=== PATIENT | female | born 1990 | race African-American/Black ===

== ENCOUNTER 2017-02-13 11:13 | Emergency (ER) | payer MEDICAID, OTHER ==
[~2017-02-13] VITALS: Ht 160 cm; Wt 70.0 kg
[~2017-02-13 11:13] MED LIST: DEPO150I IM
[2017-02-13 11:14] VITALS: BP 120/90; PULSE 91; RESP 16; TEMP 98.4; O2SAT 98
--- NOTE | 2017-02-13 11:34 | PD ---
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 The patient states that 2 months ago she received her first Depo-Provera injection for contraception. States that she believes this is what is causing her to have bleeding. States she has never been on this medication or any other hormone previously. States that she did have a Pap smear done the month before starting this injection which was unremarkable. States that today she woke up feeling fatigued and having muscle aches in her neck and back. States that this concerned her and she wanted to come in for evaluation. She denies any fever, chills, nausea, vomiting, abdominal pain, diarrhea, constipation, chest pain, shortness of breath, cough or cold symptoms. States that she does have some intermittent lightheadedness. Denies any history of anemia. No other complaints. PFSH Past Medical History Medical History: Denies Significant Hx Diminished Hearing: No Immunizations Current: No Tetanus Vaccination: < 5 Years Influenza Vaccination: No ?: Not : 4 Para: 2 Miscarriage: 1 : 0 Ectopic : Yes (x1) Past Surgical History Gynecologic Surgery: Yes (TUBAL WITH RUPTURE, REMOVAL OF L. TUBE) Other Surgery: Yes (REMOVAL OF LEFT FALLOPIAN TUBE) Social History Alcohol Use: No Tobacco Use: No Substance Use: No Allergies-Medications (Allergen,Severity, Reaction): Coded Allergies: Amoxicillin (Verified Allergy, Unknown, 12/04/16) Pt reports allergy during childhood, unknown severity or reaction Reported Meds & Prescriptions Reported Meds & Active Scripts Active Depo-Provera Inj (Medroxyprogesterone Inj) 150 Mg/Ml Inj 150 Mg IM Q90D Review of Systems Except as stated in HPI: all other systems reviewed are Neg Physical Exam Narrative GENERAL: Well-nourished and well-developed pleasant patient in no acute distress who is nontoxic appearing. SKIN: Warm and dry. HEAD: Normocephalic and atraumatic. EYES: No injection, drainage, or hyphema noted. PERRLA. EOMI. ENT: No nasal drainage noted. Oropharynx is clear. NECK: Supple and the trachea is midline. No nuchal rigidity. CARDIOVASCULAR: Regular rate and rhythm. RESPIRATORY: Breath sounds are equal bilaterally with no accessory muscle use, wheezing, rhonchi, or crackles. GASTROINTESTINAL: Abdomen is soft, non-tender, and nondistended. MUSCULOSKELETAL: No obvious deformities, swelling, cyanosis, or ecchymosis is present throughout the upper and lower extremities. Patient has full range of motion without any signs of neurovascular compromise. BACK: Nontender without any obvious deformities, bony point tenderness, or crepitus noted throughout the thoracic and lumbar vertebrae. NEUROLOGICAL: Awake, alert, and oriented. Normal speech and gait. Cranial nerves are grossly intact. Data Data Last Documented VS Vital Signs Date Time Temp Pulse Resp B/P Pulse Ox O2 Delivery O2 Flow Rate FiO2 02/13/17 11:14 98.4 91 16 120/90 98 Orders Complete Blood Count With Diff (02/13/17 11:31) Ed Urine Pregnancytest Poc (02/13/17 11:31) Basic Metabolic Panel (Bmp) (02/13/17 11:34) Labs Laboratory Tests Test 02/13/17 11:37 White Blood Count 6.2 TH/MM3 Red Blood Count 4.24 MIL/MM3 Hemoglobin 12.7 GM/DL Hematocrit 38.3 % Mean Corpuscular Volume 90.3 FL Mean Corpuscular Hemoglobin 30.0 PG Mean Corpuscular Hemoglobin 33.2 % Concent Red Cell Distribution Width 14.6 % Platelet Count 242 TH/MM3 Mean Platelet Volume 7.5 FL Neutrophils (%) (Auto) 51.2 % Lymphocytes (%) (Auto) 39.4 % Monocytes (%) (Auto) 8.0 % Eosinophils (%) (Auto) 0.9 % Basophils (%) (Auto) 0.5 % Neutrophils # (Auto) 3.2 TH/MM3 Lymphocytes # (Auto) 2.5 TH/MM3 Monocytes # (Auto) 0.5 TH/MM3 Eosinophils # (Auto) 0.1 TH/MM3 Basophils # (Auto) 0.0 TH/MM3 CBC Comment DIFF FINAL Differential Comment Sodium Level 138 MEQ/L Potassium Level 4.0 MEQ/L Chloride Level 106 MEQ/L Carbon Dioxide Level 25.6 MEQ/L Anion Gap 6 MEQ/L Blood Urea Nitrogen 10 MG/DL Creatinine 0.87 MG/DL Estimat Glomerular Filtration 95 ML/MIN Rate Random Glucose 80 MG/DL Calcium Level 9.1 MG/DL MDM Medical Decision Making Medical Screen Exam Complete: Yes Emergency Medical Condition: Yes Differential Diagnosis Medication side effect versus dysfunctional uterine bleeding versus dysmenorrhea versus symptomatic anemia Narrative Course 27-year-old female presents to the emergency department for evaluation of one month history of vaginal bleeding after receiving her first dose of Depo- Provera. Patient is afebrile, vital signs are stable. Physical examination is essentially unremarkable. CBC is unremarkable. BMP is unremarkable. Patient has remained stable and without complaint while here in the emergency department. Labs are all reassuring. I discussed with the patient that abnormal vaginal bleeding is a side effect of the Depo-Provera injection. She is to follow-up with her director media who is giving her this medication. Patient verbalizes understanding and agreement with treatment plan. I discussed the case with my attending physician Dr. Coello who is aware of the patients history, physical examination findings, and treatment plan. 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 Return to the ED for any acute worsening of symptoms. Med/Other Pt SpecificInfo: No Change to Meds Disposition: 01 DISCHARGE HOME Condition: Stable Faviola Woody February 13, 2017 11:34
[2017-02-13 12:09] LABS: AUTOMATED NEUTROPHIL # 3.2 TH/MM3 (1.8-7.7); BASOPHIL % 0.5 % (0.0-2.0); EOSINOPHIL # 0.1 TH/MM3 (0-0.4); EOSINOPHIL % 0.9 % (0.0-4.0); HEMATOCRIT 38.3 % (35.0-46.0); HEMO FLAGS DIFF FINAL; LYMPH % 39.4 % (9.0-44.0); LYMPHOCYTE # 2.5 TH/MM3 (1.0-4.8); MEAN CELL VOLUME 90.3 FL (80.0-100.0); MEAN CORPUSCULAR HGB CONC 33.2 % (32.0-36.0); NEUT % 51.2 % (16.0-70.0); PLATELET COUNT 242 TH/MM3 (150-450); RED BLOOD COUNT 4.24 MIL/MM3 (4.00-5.30); RED CELL DISTRIBUTION WIDTH 14.6 % (11.6-17.2); WHITE BLOOD COUNT 6.2 TH/MM3 (4.0-11.0)
[2017-02-13 12:35] LABS: BICARBONATE 25.6 MEQ/L (21.0-32.0)
== END 2017-02-13 12:50 | disposition home or self-care (01) ==
LOC: NEPD 11:13
DX: N93.9 Abnormal uterine and vaginal bleeding, unspecified (principal); T88.7XXA Unspecified adverse effect of drug or medicament, initial encounter; R53.83 Other fatigue; M79.1 Myalgia; R42 Dizziness and giddiness
CPT/HCPCS: 80048; 84703; 85025; 99283

== ENCOUNTER 2017-04-05 16:02 | Emergency (ER) | payer MEDICAID, OTHER ==
[2017-04-05 16:04] VITALS: BP 125/72; PULSE 77; RESP 18; TEMP 98.7; O2SAT 100
[2017-04-05 16:10] VITALS: BP 127/69; PULSE 79; RESP 18; TEMP 98.6; O2SAT 100
--- NOTE | 2017-04-05 16:52 | PD ---
Physical Exam Time Seen by Provider: 16:51 Narrative 27 y/o female with 2 weeks nausea, breast soreness. Vital signs reviewed. Seen at triage desk. Awaiting bed placement. Data Data Last Documented VS Vital Signs Date Time Temp Pulse Resp B/P Pulse Ox O2 Delivery O2 Flow Rate FiO2 04/05/17 16:10 98.6 79 18 127/69 100 Room Air Orders Ed Urine Pregnancytest Poc (04/05/17 16:54) MDM Medical Record Reviewed: Yes Supervised Visit with KRISSY: No Fabien Floyd Apr 05, 2017 16:52
[2017-04-05] MEDS ORDERED: SODIUM CHLOR 0.9% 1000 ML INJ 1,000 ML IV SCH (20:07)
--- NOTE | 2017-04-05 20:09 | PD ---
HPI Chief Complaint: GI Complaint Time Seen by Provider: 20:08 Travel History International Travel<30 days: No Contact w/Intl Traveler<30days: No Traveled to known affect area: No History of Present Illness HPI 27-year-old female presents to the emergency department for evaluation of nausea for 3 weeks. States that she's also had some breast tenderness. States that she has not had a menstrual cycle for 1.5 months. States that she had a Depo-Provera injection at the end of December and then had 1 month of vaginal bleeding. Has not had a menses since then. States that she did not get a second Depakote injection as she does not want to have this medication, she is not currently on any sort of contraception. She denies any abdominal pain, vomiting, diarrhea, constipation, fever, chills, chest pain, shortness of breath. States she does have some burning with urination. Denies any urinary frequency, hematuria, vaginal discharge. Unsure of status. PFSH Past Medical History Medical History: Denies Significant Hx Diminished Hearing: No Immunizations Current: No ?: Unknown : 4 Para: 2 Miscarriage: 1 : 0 Ectopic : Yes (x1) Past Surgical History Gynecologic Surgery: Yes (TUBAL WITH RUPTURE, REMOVAL OF L. TUBE) Other Surgery: Yes (REMOVAL OF LEFT FALLOPIAN TUBE) Social History Alcohol Use: No Tobacco Use: No Substance Use: Yes (2 days ago-) Allergies-Medications (Allergen,Severity, Reaction): Coded Allergies: Amoxicillin (Verified Allergy, Unknown, 12/04/16) Pt reports allergy during childhood, unknown severity or reaction Reported Meds & Prescriptions Reported Meds & Active Scripts Active Keflex (Cephalexin) 500 Mg Cap 500 Mg PO Q12H 7 Days Depo-Provera Inj (Medroxyprogesterone Inj) 150 Mg/Ml Inj 150 Mg IM Q90D Review of Systems Except as stated in HPI: all other systems reviewed are Neg Physical Exam Narrative GENERAL: Well-nourished and well-developed pleasant patient in no acute distress who is nontoxic appearing. SKIN: Warm and dry. HEAD: Normocephalic and atraumatic. EYES: No injection, drainage, or hyphema noted. PERRLA. EOMI. ENT: No nasal drainage noted. Oropharynx is clear. NECK: Supple and the trachea is midline. CARDIOVASCULAR: Regular rate and rhythm. RESPIRATORY: Breath sounds are equal bilaterally with no accessory muscle use, wheezing, rhonchi, or crackles. GASTROINTESTINAL: Abdomen is soft, non-tender, and nondistended. No rebound tenderness or guarding. MUSCULOSKELETAL: No obvious deformities, swelling, cyanosis, or ecchymosis is present throughout the upper and lower extremities. Patient has full range of motion without any signs of neurovascular compromise. NEUROLOGICAL: Awake, alert, and oriented. Normal speech and gait. Cranial nerves are grossly intact. Data Data Last Documented VS Vital Signs Date Time Temp Pulse Resp B/P Pulse Ox O2 Delivery O2 Flow Rate FiO2 04/05/17 16:10 98.6 79 18 127/69 100 Room Air Orders Ed Urine Pregnancytest Poc (04/05/17 16:54) Complete Blood Count With Diff (04/05/17 20:07) Comprehensive Metabolic Panel (04/05/17 20:07) Lipase (04/05/17 20:07) Urinalysis - C+S If Indicated (04/05/17 20:07) Iv Access Insert/Monitor (04/05/17 20:07) Ondansetron Inj (Zofran Inj) (04/05/17 20:15) Sodium Chlor 0.9% 1000 Ml Inj (Ns 1000 M (04/05/17 20:07) Sodium Chloride 0.9% Flush (Ns Flush) (04/05/17 20:15) Urine Culture (04/05/17 20:48) Labs Laboratory Tests Test 04/05/17 20:15 White Blood Count 8.2 TH/MM3 Red Blood Count 4.44 MIL/MM3 Hemoglobin 13.6 GM/DL Hematocrit 39.9 % Mean Corpuscular Volume 89.8 FL Mean Corpuscular Hemoglobin 30.6 PG Mean Corpuscular Hemoglobin 34.0 % Concent Red Cell Distribution Width 13.8 % Platelet Count 246 TH/MM3 Mean Platelet Volume 8.2 FL Neutrophils (%) (Auto) 49.5 % Lymphocytes (%) (Auto) 40.9 % Monocytes (%) (Auto) 8.4 % Eosinophils (%) (Auto) 0.7 % Basophils (%) (Auto) 0.5 % Neutrophils # (Auto) 4.1 TH/MM3 Lymphocytes # (Auto) 3.4 TH/MM3 Monocytes # (Auto) 0.7 TH/MM3 Eosinophils # (Auto) 0.1 TH/MM3 Basophils # (Auto) 0.0 TH/MM3 CBC Comment DIFF FINAL Differential Comment Urine Color YELLOW Urine Turbidity CLEAR Urine pH 7.0 Urine Specific [place] 1.023 Urine Protein NEG mg/dL Urine Glucose (UA) NEG mg/dL Urine Ketones NEG mg/dL Urine Occult Blood NEG Urine Nitrite NEG Urine Bilirubin NEG Urine Urobilinogen 2.0 MG/DL Urine Leukocyte Esterase MOD Urine RBC 1 /hpf Urine WBC 2 /hpf Urine Squamous Epithelial 2 /hpf Cells Urine Bacteria RARE /hpf Urine Mucus FEW /lpf Microscopic Urinalysis Comment CULT NOT INDICATED Sodium Level 138 MEQ/L Potassium Level 3.7 MEQ/L Chloride Level 107 MEQ/L Carbon Dioxide Level 24.7 MEQ/L Anion Gap 6 MEQ/L Blood Urea Nitrogen 9 MG/DL Creatinine 0.68 MG/DL Estimat Glomerular Filtration 126 ML/MIN Rate Random Glucose 80 MG/DL Calcium Level 9.5 MG/DL Total Bilirubin 0.3 MG/DL Aspartate Amino Transf 30 U/L (AST/SGOT) Alanine Aminotransferase 19 U/L (ALT/SGPT) Alkaline Phosphatase 59 U/L Total Protein 8.4 GM/DL Albumin 4.0 GM/DL Lipase 94 U/L [facility] Medical Decision Making Medical Screen Exam Complete: Yes Emergency Medical Condition: Yes Differential Diagnosis versus medication reaction versus urinary tract infection versus pancreatitis Narrative Course 27-year-old female presents to the emergency department for evaluation of nausea for 3 weeks. Patient is afebrile, vital signs are stable. Physical examination is unremarkable. Abdominal examination is benign. ED urine test is negative. The patient thinks that her symptoms are secondary to the depo Provera injection she received 3 months ago. IV access is obtained , labs have been drawn and sent. Patient is administered IV fluids and Zofran. CBC is unremarkable. Urinalysis shows moderate leukocyte esterase, rare bacteria and few mucus. Because she is symptomatic with burning with urination we'll treat the patient for urinary tract infection with Keflex. CMP is unremarkable. Patient will be discharged home with Keflex. Advised follow-up as an outpatient with her PCP or her final inspector shuttle. Patient also complaining of right knee swelling, has a history of right knee problems secondary to an injury over 10 years ago. No new injury or trauma. Has some mild swelling and is asking for prescription out with the inflammation. We'll send her home with naproxen. Patient verbalizes understanding and agreement with treatment plan. Diagnosis Primary Impression: UTI (urinary tract infection) Qualified Code: N39.0 - Urinary tract infection without hematuria, site unspecified Additional Impression: Nausea Referrals: Primary Care Physician Patient Instructions: General Instructions, Urinary Tract Infection in Women ( ED) Additional Instructions: Take medications as prescribed with food and a full glass of water. Follow-up with your Primary Care Physician. Return to the ED for any acute worsening of symptoms. Med/Other Pt SpecificInfo: Prescription(s) given Scripts Naproxen 500 Mg [id number] Mg PO BID 7 Days Ref 0 Prov:Shalom Paige MD 04/05/17 Cephalexin (Keflex)500 Mg [id number] Mg PO Q12H 7 Days Ref 0 Prov:Shalom Paige MD 04/05/17 Disposition: 01 DISCHARGE HOME Condition: Stable Faviola Woody Apr 05, 2017 20:09
[2017-04-05] MEDS ORDERED: SODIUM CHLORIDE 0.9% FLUSH 10 ML FLUSH IV FLUSH PRN (20:15)
[2017-04-05] MEDS ORDERED: ONDANSETRON HCL 4 MG/2 ML VIAL IVP ONE (20:15)
[2017-04-05 20:43] LABS: BACTERIA, URINE RARE /hpf; BLOOD, URINE NEG (NEG); COMMENT (UR) CULT NOT INDICATED; CULTURE IF INDICATED CULT NOT INDICATED; GLUCOSE,URINE NEG (NEG); KETONE, URINE NEG (NEG); MUCUS URINE FEW /lpf (OCC); NITRITE,URINE NEG (NEG); SQUAMOUS EPITHELIAL CELL URINE 2 /hpf (0-5); URINE COLOR YELLOW (YELLW/STRAW)
[2017-04-05 20:44] LABS: AUTOMATED NEUTROPHIL # 4.1 TH/MM3 (1.8-7.7); BASOPHIL % 0.5 % (0.0-2.0); EOSINOPHIL # 0.1 TH/MM3 (0-0.4); EOSINOPHIL % 0.7 % (0.0-4.0); HEMATOCRIT 39.9 % (35.0-46.0); HEMO FLAGS DIFF FINAL; LYMPH % 40.9 % (9.0-44.0); LYMPHOCYTE # 3.4 TH/MM3 (1.0-4.8); MEAN CELL VOLUME 89.8 FL (80.0-100.0); MEAN CORPUSCULAR HEMOGLOBIN 30.6 PG (27.0-34.0); MONO % 8.4 % (0.0-8.0); NEUT % 49.5 % (16.0-70.0); PLATELET COUNT 246 TH/MM3 (150-450); RED BLOOD COUNT 4.44 MIL/MM3 (4.00-5.30); RED CELL DISTRIBUTION WIDTH 13.8 % (11.6-17.2); WHITE BLOOD COUNT 8.2 TH/MM3 (4.0-11.0)
[2017-04-05] MEDS ORDERED: CEPH-460 PO (20:51)
[2017-04-05 20:58] LABS: ALT (GPT) 19 U/L (10-53)
[2017-04-05 21:01] LABS: ALKALINE PHOSPHATASE 59 U/L (45-117); ANION GAP 6 MEQ/L (5-15); AST (GOT) 30 U/L (15-37); BICARBONATE 24.7 MEQ/L (21.0-32.0); BLOOD UREA NITROGEN 9 MG/DL (7-18); CHLORIDE 107 MEQ/L (98-107); GLOMERULAR FILTRATION RATE 126 ML/MIN (>89); SODIUM (NA) 138 MEQ/L (136-145); TOTAL BILIRUBIN ADULT 0.3 MG/DL (0.2-1.0)
[2017-04-05 21:02] LABS: POTASSIUM 3.7 MEQ/L (3.5-5.1)
[2017-04-05] MEDS ORDERED: NAPR500T PO (21:05)
== END 2017-04-05 21:09 | disposition home or self-care (01) ==
LOC: NEPD 16:02
DX: N39.0 Urinary tract infection, site not specified (principal); R11.0 Nausea; Z79.899 Other long term (current) drug therapy; Z88.0 Allergy status to penicillin
CPT/HCPCS: 80053; 81001; 83690; 84703; 85025; 99284

== ENCOUNTER 2017-08-01 11:43 | Emergency (ER) | payer OTHER ==
[~2017-08-01] VITALS: Ht 160 cm; Wt 77.0 kg
[~2017-08-01 11:43] MED LIST changes: +CEPH-460 PO; +NAPR500T2 PO
[2017-08-01 11:44] VITALS: BP 130/69; PULSE 85; RESP 18; TEMP 98.8; O2SAT 100
[2017-08-01] MEDS ORDERED: SODIUM CHLOR 0.9% 1000 ML INJ 1,000 ML IV ONE (12:08)
[2017-08-01] MEDS ORDERED: SODIUM CHLORIDE 0.9% FLUSH 10 ML FLUSH IVF PRN (12:15)
[2017-08-01 12:48] LABS: BASOPHIL % 0.5 % (0.0-2.0); EOSINOPHIL # 0.1 TH/MM3 (0-0.4); EOSINOPHIL % 0.7 % (0.0-4.0); HEMATOCRIT 38.2 % (35.0-46.0); HEMO FLAGS DIFF FINAL; LYMPH % 38.5 % (9.0-44.0); MEAN CELL VOLUME 90.2 FL (80.0-100.0); MEAN CORPUSCULAR HEMOGLOBIN 31.4 PG (27.0-34.0); MEAN CORPUSCULAR HGB CONC 34.9 % (32.0-36.0); MONO % 7.8 % (0.0-8.0); NEUT % 52.5 % (16.0-70.0); PLATELET COUNT 224 TH/MM3 (150-450); RED BLOOD COUNT 4.24 MIL/MM3 (4.00-5.30); RED CELL DISTRIBUTION WIDTH 13.7 % (11.6-17.2); WHITE BLOOD COUNT 7.7 TH/MM3 (4.0-11.0)
[2017-08-01 13:02] LABS: BACTERIA, URINE RARE /hpf; BLOOD, URINE NEG (NEG); COMMENT (UR) CULT NOT INDICATED; CULTURE IF INDICATED CULT NOT INDICATED; GLUCOSE,URINE NEG (NEG); KETONE, URINE NEG (NEG); NITRITE,URINE NEG (NEG); PH, URINE 6.5 (5.0-8.5); URINE COLOR LIGHT-YELLOW (YELLW/STRAW)
[2017-08-01 13:10] LABS: ANION GAP 6 MEQ/L (5-15); AST (GOT) 18 U/L (15-37); BICARBONATE 24.8 MEQ/L (21.0-32.0); BLOOD UREA NITROGEN 6 MG/DL (7-18); CHLORIDE 106 MEQ/L (98-107); GLOMERULAR FILTRATION RATE 118 ML/MIN (>89); POTASSIUM 3.4 MEQ/L (3.5-5.1); SODIUM (NA) 137 MEQ/L (136-145)
[2017-08-01 13:14] LABS: ALKALINE PHOSPHATASE 54 U/L (45-117); ALT (GPT) 18 U/L (10-53); BETA HCG QUANT 682 MIU/ML (0-5); TOTAL BILIRUBIN ADULT 0.3 MG/DL (0.2-1.0)
--- NOTE | 2017-08-01 13:34 | PD ---
HPI Chief Complaint: Abdominal Pain Time Seen by Provider: 12:00 Travel History International Travel<30 days: No Contact w/Intl Traveler<30days: No Traveled to known affect area: No History of Present Illness HPI Patient 27-year-old female who is A2 L2 with history of an ectopic at 6 weeks, resents the emergency room complaints of right mid abdomen to right flank pain. Patient with history of a miscarriage at 2-3 weeks as well as an ectopic at 6 weeks which resulted in resection of left tube due to rupture. Patient reports that for the past 2 days, she's been having intermittent pains, reports that her symptoms feel similar to when she was diagnosed with an ectopic in the past. Patient reports that her first day for last menstrual cycle was July 02, 2017. She did take a test at home which was positive. She did make an appointment with [facility] for [facility] visit. Patient denies any vaginal discharge or bleeding, denies any nausea or vomiting or diarrhea. Patient with no fever or chills, no other complaints at this time. PFSH Past Medical History Diminished Hearing: No Immunizations Current: No Tetanus Vaccination: < 5 Years ?: LMP: 07/02/17 : 4 Para: 2 Miscarriage: 1 : 0 Ectopic : Yes (x1) Past Surgical History Gynecologic Surgery: Yes (TUBAL WITH RUPTURE, REMOVAL OF L. TUBE) Other Surgery: Yes (REMOVAL OF LEFT FALLOPIAN TUBE) Social History Alcohol Use: No Tobacco Use: No Substance Use: No Allergies-Medications (Allergen,Severity, Reaction): Coded Allergies: amoxicillin (Unverified Allergy, Unknown, 08/01/17) Pt reports allergy during childhood, unknown severity or reaction Reported Meds & Prescriptions Reported Meds & Active Scripts Active Review of Systems General / Constitutional: No: Fever Eyes: No: Visual changes HENT: No: Headaches Cardiovascular: No: Chest Pain or Discomfort Respiratory: No: Shortness of Breath Gastrointestinal: Positive: Abdominal Pain, No: Nausea, Vomiting, Diarrhea Genitourinary: Positive: Flank Pain, No: Dysuria, Pelvic Pain, Discharge, Vaginal Bleeding Musculoskeletal: No: Pain Skin: No Rash Neurologic: No: Weakness Psychiatric: No: Depression Endocrine: No: Polydipsia Hematologic/Lymphatic: No: Easy Bruising Physical Exam Narrative GENERAL: mild distress SKIN: Focused skin assessment warm/dry. HEAD: Atraumatic. Normocephalic. EYES: Pupils equal and round. No scleral icterus. No injection or drainage. ENT: No nasal bleeding or discharge. Mucous membranes pink and moist. NECK: Trachea midline. No JVD. CARDIOVASCULAR: Regular rate and rhythm. No murmur appreciated. RESPIRATORY: No accessory muscle use. Clear to auscultation. Breath sounds equal bilaterally. GASTROINTESTINAL: Abdomen soft, mild tenderness to right mid abdomen with no rebound or guarding on exam, nondistended. Hepatic and splenic margins not palpable. MUSCULOSKELETAL: No obvious deformities. No clubbing. No cyanosis. No edema. Patient with no flank pain NEUROLOGICAL: Awake and alert. No obvious cranial nerve deficits. Motor grossly within normal limits. Normal speech. PSYCHIATRIC: Appropriate mood and affect; insight and judgment normal. Data Data Last Documented VS Vital Signs Date Time Temp Pulse Resp B/P (MAP) Pulse Ox O2 Delivery O2 Flow Rate FiO2 08/01/17 14:14 74 20 119/68 (85) 99 08/01/17 11:44 98.8 Room Air Orders Orders Beta Hcg (Quant/Titer) (08/01/17 12:08) Complete Blood Count With Diff (08/01/17 12:08) Comprehensive Metabolic Panel (08/01/17 12:08) Type And Screen (08/01/17 12:08) Urinalysis - C+S If Indicated (08/01/17 12:08) Iv Access Insert/Monitor (08/01/17 12:08) Ecg Monitoring (08/01/17 12:08) Sodium Chloride 0.9% Flush (Ns Flush) (08/01/17 12:15) Sodium Chlor 0.9% 1000 Ml Inj (Ns 1000 M (08/01/17 12:08) Ed Urine Pregnancytest Poc (08/01/17 12:08) NPO (08/01/17 12:08) Us Pelvis (Ques Pr/Ect)W Trans (08/01/17 ) Labs Laboratory Tests Test 08/01/17 12:20 White Blood Count 7.7 TH/MM3 Red Blood Count 4.24 MIL/MM3 Hemoglobin 13.3 GM/DL Hematocrit 38.2 % Mean Corpuscular Volume 90.2 FL Mean Corpuscular Hemoglobin 31.4 PG Mean Corpuscular Hemoglobin Concent 34.9 % Red Cell Distribution Width 13.7 % Platelet Count 224 TH/MM3 Mean Platelet Volume 7.4 FL Neutrophils (%) (Auto) 52.5 % Lymphocytes (%) (Auto) 38.5 % Monocytes (%) (Auto) 7.8 % Eosinophils (%) (Auto) 0.7 % Basophils (%) (Auto) 0.5 % Neutrophils # (Auto) 4.0 TH/MM3 Lymphocytes # (Auto) 3.0 TH/MM3 Monocytes # (Auto) 0.6 TH/MM3 Eosinophils # (Auto) 0.1 TH/MM3 Basophils # (Auto) 0.0 TH/MM3 CBC Comment DIFF FINAL Differential Comment Urine Color LIGHT-YELLOW Urine Turbidity CLEAR Urine pH 6.5 Urine Specific [place] 1.003 Urine Protein NEG mg/dL Urine Glucose (UA) NEG mg/dL Urine Ketones NEG mg/dL Urine Occult Blood NEG Urine Nitrite NEG Urine Bilirubin NEG Urine Urobilinogen LESS THAN 2.0 MG/DL Urine Leukocyte Esterase TRACE Urine RBC 1 /hpf Urine WBC 1 /hpf Urine Bacteria RARE /hpf Microscopic Urinalysis Comment CULT NOT INDICATED Blood Urea Nitrogen 6 MG/DL Creatinine 0.72 MG/DL Random Glucose 75 MG/DL Total Protein 8.4 GM/DL Albumin 4.0 GM/DL Calcium Level 8.9 MG/DL Alkaline Phosphatase 54 U/L Aspartate Amino Transf (AST/SGOT) 18 U/L Alanine Aminotransferase (ALT/SGPT) 18 U/L Total Bilirubin 0.3 MG/DL Sodium Level 137 MEQ/L Potassium Level 3.4 MEQ/L Chloride Level 106 MEQ/L Carbon Dioxide Level 24.8 MEQ/L Anion Gap 6 MEQ/L Estimat Glomerular Filtration Rate 118 ML/MIN Human Chorionic Gonadotropin, Quant 682 MIU/ML MDM Medical Decision Making Medical Screen Exam Complete: Yes Emergency Medical Condition: Yes Medical Record Reviewed: Yes Interpretation(s) Vital Signs Date Time Temp Pulse Resp B/P (MAP) Pulse Ox O2 Delivery O2 Flow Rate FiO2 08/01/17 11:44 98.8 85 18 130/69 (89) 100 Room Air Differential Diagnosis Differential includes ectopic , appendicitis, gastroenteritis, gastritis, kidney stone, UTI, pyelonephritis Narrative Course During the course of the patients emergency department visit, the patients history, examination, and differential diagnosis were reviewed with the patient. The patient was placed on a office executive with oximetry and frequent blood pressure monitoring. The patient had 20-gauge IV access obtained and blood work sent for analysis. Patient's FDLMP was July 02, 2017. Patient is 4 weeks , a estimated due date is April 10, 2018 The patient was initially provided IVF The patients laboratory studies were reviewed and remarkable for: CBC & BMP Diagram 08/01/17 12:20 Total Protein 8.4 H, Albumin 4.0, Calcium Level 8.9, Alkaline Phosphatase 54, Aspartate Amino Transf (AST/SGOT) 18, Alanine Aminotransferase (ALT/SGPT) 18, Total Bilirubin 0.3 cbc: unremarkable BMP: potassium 3.4, LFTs: wnl HCG quant 682 Radiology studies were reviewed and remarkable for Last Impressions Pelvis Ultrasound 08/01/17 0000 Signed Impressions: Service Date/Time: Sunday, August 01, 2017 12:53 - CONCLUSION: 1. No definite intrauterine gestation. The endometrial stripe is heterogeneously prominent. 2. 2.1 x 2.6 x 1.4 cm hypoechoic lesion the left ovary with associated hyperemia enlarged from 1.4 x 1.2 x 1.3 cm on prior exam although similar in appearance. Patient has history of left salpingectomy for ectopic . Suspect a complex cyst although ectopic cannot be entirely excluded. Close followup is recommended. . 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 Discussed with her all labs and all studies including all findings. Discussed that with her early and low hCG Quant, no definite intrauterine gestation can be seen at this time. She does have a prominent hypoechoic lesion in the left ovary - this could be a complex cyst versus ectopic . Patient understands that she needs a repeat hCG Quant as well as a pelvic ultrasound, patient reports that she is pain-free at this time and does not want any other studies including MRI of abdomen to rule out appendicitis. Signs and symptoms of when to return to the ER as well as symptoms of an acute abdomen was reviewed with patient in detail. Diagnosis Primary Impression: Ectopic Additional Impressions: Abdominal pain Ovarian cyst Patient Instructions: General Instructions Additional Instructions: Please provide patient with a copy of their lab work and studies at discharge* * Please follow up with your hatchery supervisor as soon as possible Return to the ER if symptoms worsen or progress Return to the ER as needed You will need a repeat HCG quant in 48 hours as well as repeat pelvic US Ectopic versus ovarian cyst was not ruled out today. Please follow up with your hatchery supervisor as soon as possible.. Return to ER immediately if you have return of pain Pelvic rest until you are seen and cleared by your hatchery supervisor Disposition: 01 DISCHARGE HOME Condition: Ashwini Marques DO Aug 01, 2017 13:34
--- NOTE | 2017-08-01 13:51 | RADRPT ---
EXAM DATE/TIME: 08/01/2017 12:53 [facility] COMPARISON: US PELVIS (QUEST PREG/ECTOPIC) W/TRANSVAG, August 23, 2016, 8:01. INDICATIONS : Right pelvic pain and back pain. LAB(S): Beta-hC MEDICAL HISTORY : . Ectopic. SURGICAL HISTORY : Left salpingectomy. ENCOUNTER: [facility] ACUITY: 2 days PAIN SCORE: 2/10 LOCATION: Bilateral pelvis MEASUREMENTS: UTERUS: 10.0 x 6.5 x 5.7 cm ENDOMETRIAL STRIPE: 20 mm RIGHT OVARY: 2.8 x 1.7 x 1.9 cm LEFT OVARY: 4.5 x 3.4 x 1.9 cm FREE FLUID: Yes Right adnexa. CROWN RUMP LENGTH: not seen = WKS DAYS FHR: not seen BPM FINDINGS: UTERUS: The myometrium has homogeneous echotexture without mass. Endometrial stripe is heterogeneous an d thickened but no gestational sac is demonstrated. RIGHT OVARY: Ovary contains no mass or significant cystic lesion. LEFT OVARY: There is a 2.1 x 2.6 x 1.4 cm hypoechoic lesion in the left ovary with increased vascularity. Th is is similar in appearance to lesion noted on prior exam although there has been interval enlar gement. Left ovary is otherwise unremarkable. MISCELLANEOUS: Trace free fluid in in the right adnexa CONCLUSION: 1. No definite intrauterine gestation. The endometrial stripe is heterogeneously prominent. 2. 2.1 x 2.6 x 1.4 cm hypoechoic lesion the left ovary with associated hyperemia enlarged from 1.4 x 1.2 x 1.3 cm on prior exam although similar in appearance. Patient has history of left salpingectomy for ectopic . Suspect a complex cyst although ectopic cannot be entirely excluded. Close fol lowup is recommended. . Damien Napoles MD on August 01, 2017 at 13:38 Board Certified Radiologist. This report was verified electronically.
[2017-08-01 14:14] VITALS: BP 119/68
== END 2017-08-01 14:30 | disposition home or self-care (01) ==
LOC: NEPD 11:43
DX: O00.109 Unspecified tubal pregnancy without intrauterine pregnancy (principal); Z3A.00 Weeks of gestation of pregnancy not specified
CPT/HCPCS: 76700; 76817; 80053; 81001; 84702; 84703; 85025; 86850; 86900; 86901; 99284; J7030

== ENCOUNTER 2017-08-04 19:21 | Emergency (ER) | payer OTHER ==
[~2017-08-04] VITALS: Ht 160 cm; Wt 80.0 kg
[2017-08-04 19:23] VITALS: BP 119/67; PULSE 79; RESP 16; TEMP 98.6; O2SAT 100
[2017-08-04] MEDS ORDERED: PREN29TA PO (19:41)
--- NOTE | 2017-08-04 19:51 | PD ---
HPI Chief Complaint: Abdominal Pain Time Seen by Provider: 19:35 Travel History International Travel<30 days: No Contact w/Intl Traveler<30days: No Traveled to known affect area: No History of Present Illness HPI 27-year-old woman, 5 para 2, 0, 2, 2 with one previous ectopic resulting in a left salpingectomy and one previous early miscarriage, last menstrual period July 12, presenting for r 48 hour repeat hCG. She presents to the emergency department 48 hours ago for 2 days of intermittent right sided abdominal pain. No vaginal bleeding or vaginal discharge. Was concerned that felt similar to when she had an ectopic in the past. At that time she had an hCG of 682, and an ultrasound that showed no definite intrauterine gestation with hypoechoic lesion in the left ovary with associated hyperemia enlarged from prior exam. She was directed to return to the emergency department for 48 hour repeat hCG. History Past Medical History Medical History: Denies Significant Hx Tetanus Vaccination: < 5 Years Influenza Vaccination: No LMP: 07/02/2017 4 weeks : 4 Para: 2 Social History Alcohol Use: No Tobacco Use: No Allergies-Medications (Allergen,Severity, Reaction): Coded Allergies: amoxicillin (Unverified Allergy, Unknown, 08/01/17) Pt reports allergy during childhood, unknown severity or reaction Reported Meds & Prescriptions Reported Meds & Active Scripts Active Reported Plus Iron 29-1 mg ( Vit-Iron Carbonyl) 29 Mg Iron-1 Mg Tab 1 Tab PO DAILY Review of Systems Except as stated in HPI: all other systems reviewed are Neg Physical Exam Narrative GENERAL: Well-appearing 27 year-old woman, no acute distress. SKIN: Focused skin assessment warm/dry. NECK: Trachea midline. No JVD. CARDIOVASCULAR: Warm and well perfused. RESPIRATORY: Normal rate and effort. GASTROINTESTINAL: Abdomen soft, non-tender, nondistended. Hepatic and splenic margins not palpable. MUSCULOSKELETAL: No obvious deformities. Data Data Last Documented VS Vital Signs Date Time Temp Pulse Resp B/P (MAP) Pulse Ox O2 Delivery O2 Flow Rate FiO2 08/04/17 19:23 98.6 79 16 119/67 (84) 100 Orders Orders Beta Hcg (Quant/Titer) (08/04/17 19:36) Us Pelvis (Ques Pr/Ect)W Trans (08/04/17 ) Labs Laboratory Tests Test 08/04/17 19:45 Human Chorionic Gonadotropin, Quant 3090 MIU/ML [facility] Medical Decision Making Medical Screen Exam Complete: Yes Emergency Medical Condition: Yes Interpretation(s) HCG 3090 Pelvic ultrasound: Now with a cystic structure in the endometrium likely representing a very small gestational sac. No yolk sac or embryo is identified. Suggest clinical and ultrasound follow-up. No other concerning finding. Differential Diagnosis Anterior , threatened AB, intrauterine , miscarriage, ectopic , other Narrative Course Medical decision making 27 year-old woman presents emergency Department with , left-sided adnexal findings on her ultrasound a previous left salpingectomy for ectopic, and a low hCG without definitive intrauterine . We'll repeat check hCG , consider repeat ultrasound. FINAL: HCG rising appropriately. Adnexal findings on the ultrasound, but on the opposite side of her pain. These were seen previously. Recommend outpatient follow-up with OB. Diagnosis Primary Impression: Additional Instructions: Follow-up with your [employer] this week. Return to the emergency department for any worsening pain. Disposition: 01 DISCHARGE HOME Condition: Stable Kwame Tate MD Aug 04, 2017 19:51
[2017-08-04 20:33] LABS: BETA HCG QUANT 3090 MIU/ML (0-5)
--- NOTE | 2017-08-04 21:54 | RADRPT ---
EXAM DATE/TIME: 08/04/2017 21:09 [place] COMPARISON: US PELVIS (QUEST PREG/ECTOPIC) W/TRANSVAG, August 01, 2017, 12:53. INDICATIONS : Pelvic pain. LAB(S): Beta-hC MEDICAL HISTORY : . Ectopic. SURGICAL HISTORY : Left salpingectomy. ENCOUNTER: Subsequent ACUITY: 1 month PAIN SCORE: 2/10 LOCATION: Bilateral pelvis MEASUREMENTS: UTERUS: 9.3 x 5.3 x 5.6 cm ENDOMETRIAL STRIPE: 16 mm RIGHT OVARY: 3.2 x 2.1 x 1.4 cm LEFT OVARY: 4.3 x 2.5 x 1.7 cm FREE FLUID: No FINDINGS: UTERUS: The myometrium has homogeneous echotexture without mass. There is asymmetrically located ovoid cystic structure in the endometrium measuring 7 x 5 x 5 mm. No yolk sac is visualized. It is too small to c alculate dates. RIGHT OVARY: Ovary contains no mass or significant cystic lesion. LEFT OVARY: Ovary contains no mass or significant cystic lesion. MISCELLANEOUS: No free fluid. CONCLUSION: 1. There is now a cystic structure within the endometrium likely representing a very small gestationa l sac. No yolk sac or embryo is identified. Suggest clinical and ultrasound followup, as needed, to c onfirm appropriate progression of . 2. No other concerning finding is seen. Madhav Solorzano MD on August 04, 2017 at 21:49 Board Certified Radiologist. This report was verified electronically.
== END 2017-08-04 22:30 | disposition home or self-care (01) ==
LOC: NEPE 19:21
DX: Z33.1 Pregnant state, incidental (principal)
CPT/HCPCS: 76700; 76817; 84702; 99284

== ENCOUNTER → 2017-08-22 | Outpatient (CLI) | payer MEDICAID, OTHER ==
[~2017-08-22] MED LIST changes: -CEPH-460 PO; -DEPO150I IM; -NAPR500T2 PO; +PREN29TA PO; +PROM12.54 PO
[2017-08-22 16:39] LABS: AUTOMATED NEUTROPHIL # 6.2 TH/MM3 (1.8-7.7); BASOPHIL % 0.3 % (0.0-2.0); EOSINOPHIL # 0.1 TH/MM3 (0-0.4); EOSINOPHIL % 0.7 % (0.0-4.0); HEMATOCRIT 38.5 % (35.0-46.0); HEMO FLAGS DIFF FINAL; LYMPH % 28.3 % (9.0-44.0); LYMPHOCYTE # 2.8 TH/MM3 (1.0-4.8); MEAN CELL VOLUME 91.9 FL (80.0-100.0); MEAN CORPUSCULAR HEMOGLOBIN 30.4 PG (27.0-34.0); MEAN CORPUSCULAR HGB CONC 33.1 % (32.0-36.0); MONO % 8.2 % (0.0-8.0); NEUT % 62.5 % (16.0-70.0); PLATELET COUNT 231 TH/MM3 (150-450); RED BLOOD COUNT 4.19 MIL/MM3 (4.00-5.30); RED CELL DISTRIBUTION WIDTH 14.9 % (11.6-17.2)
[2017-08-23 00:20] LABS: RUBELLA IGG ANTIBODY 9.8 IU/mL (10.0-500.0); RUBELLA STATUS INDETERMINATE (IMMUNE)
[2017-08-25 19:52] LABS: HIV 1/2 AG AB NON-REACTIVE (NONREACTIVE)
== END ==
LOC: CLAB 15:58
PROVIDERS: ATTEND Obstetrics & Gynecology
DX: Z11.59 Encounter for screening for other viral diseases (principal); Z13.29 Encounter for screening for other suspected endocrine disorder; Z13.21 Encounter for screening for nutritional disorder; Z13.228 Encounter for screening for other metabolic disorders; Z20.820 Contact with and (suspected) exposure to varicella
CPT/HCPCS: 36415; 84443; 85025; 86592; 86762; 86787; 86850; 86900; 86901; 87086; 87340

== ENCOUNTER 2017-10-08 16:50 | Emergency (ER) | payer MEDICAID ==
[~2017-10-08] VITALS: Ht 160 cm; Wt 78.6 kg
[~2017-10-08 16:50] MED LIST changes: +AMCIN.1%T TOPICAL
[2017-10-08 16:51] VITALS: BP 121/58; PULSE 91; RESP 16; TEMP 98.8; O2SAT 98
[2017-10-08] MEDS ORDERED: SODIUM CHLOR 0.9% 1000 ML INJ 1,000 ML IV ONE (17:29)
[2017-10-08] MEDS ORDERED: METOCLOPRAMIDE HCL 10 MG/2 ML VIAL IVP ONE (17:30)
[2017-10-08] MEDS ORDERED: ACETAMINOPHEN 500 MG CPLT PO ONE (17:30)
--- NOTE | 2017-10-08 17:34 | PD ---
HPI Chief Complaint: Headache Time Seen by Provider: 17:24 Travel History International Travel<30 days: No Contact w/Intl Traveler<30days: No Traveled to known affect area: No History of Present Illness HPI Examined in the presence of a female nurse. This is a 27-year-old female reports that she is 14 weeks . She presents for evaluation of a headache. Symptoms started yesterday. The pain is a dull frontal headache, aching, rated 4 out of 10. She tried taking Tylenol earlier this morning. Denies blurred vision, nausea or vomiting, lower extremity edema. She has no other complaints at this time. [facility] Past Medical History Medical History: Denies Significant Hx Diminished Hearing: No Immunizations Current: No Influenza Vaccination: No ?: : 4 Para: 2 Miscarriage: 1 : 0 Ectopic : Yes (x1) Past Surgical History Gynecologic Surgery: Yes (TUBAL WITH RUPTURE, REMOVAL OF L TUBE) Other Surgery: Yes (REMOVAL OF LEFT FALLOPIAN TUBE) Social History Alcohol Use: No Tobacco Use: No Substance Use: No Allergies-Medications (Allergen,Severity, Reaction): Coded Allergies: amoxicillin (Unverified Allergy, Unknown, 10/08/17) Pt reports allergy during childhood, unknown severity or reaction Reported Meds & Prescriptions Reported Meds & Active Scripts Active Amcinonide Topical (Amcinonide) 0.1% Cream 1 Applic TOPICAL BID Apply a thin film to affected area(s) Promethazine (Promethazine HCl) 12.5 Mg Tab 12.5 Mg PO Q6H PRN Reported Plus Iron 29-1 mg ( Vit-Iron Carbonyl) 29 Mg Iron-1 Mg Tab 1 Tab PO DAILY Review of Systems Except as stated in HPI: all other systems reviewed are Neg Physical Exam Narrative GENERAL: Well-developed well-nourished female in no acute distress SKIN: Warm and dry. HEAD: Atraumatic. Normocephalic. EYES: Pupils equal and round. No scleral icterus. No injection or drainage. ENT: No nasal bleeding or discharge. Mucous membranes pink and moist. NECK: Trachea midline. No JVD. CARDIOVASCULAR: Regular rate and rhythm. No murmur appreciated. RESPIRATORY: No accessory muscle use. Clear to auscultation. Breath sounds equal bilaterally. GASTROINTESTINAL: Abdomen soft, non-tender, nondistended. Hepatic and splenic margins not palpable. MUSCULOSKELETAL: No obvious deformities. No clubbing. No cyanosis. No edema. NEUROLOGICAL: Awake and alert. No obvious cranial nerve deficits. Motor grossly within normal limits. Normal speech. PSYCHIATRIC: Appropriate mood and affect; insight and judgment normal. Data Data Last Documented VS Vital Signs Date Time Temp Pulse Resp B/P (MAP) Pulse Ox O2 Delivery O2 Flow Rate FiO2 10/08/17 16:51 98.8 91 16 121/58 (79) 98 Orders Orders Oxygen Administration (10/08/17 17:29) Metoclopramide Inj (Reglan Inj) (10/08/17 17:30) Sodium Chlor 0.9% 1000 Ml Inj (Ns 1000 M (10/08/17 17:29) Acetaminophen (Tylenol) (10/08/17 17:30) MDM Medical Decision Making Medical Screen Exam Complete: Yes Emergency Medical Condition: Yes Medical Record Reviewed: Yes Differential Diagnosis Tension headache, preeclampsia, migraine, pseudotumor cerebri, intracranial hemorrhage Narrative Course This is a 27-year-old female with 2 day history of frontal headache. She rates the pain as a 4/10. Physical examination is reassuring with no focal neurologic deficits, no lower extremity edema, normal blood pressure. Unfortunately the patient reports that she has to drive herself home and therefore no sedating medications will be provided. She will be placed on high flow oxygen, given IV normal saline, Reglan, as well as oral Tylenol. 1825: Upon reexamination the patient feels much better, her headache has resolved. She is stable for discharge. 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 Return for any emergent medical conditions. Med/Other Pt SpecificInfo: No Change to Meds Disposition: 01 DISCHARGE HOME Condition: Stable Fabien Floyd Oct 08, 2017 17:34
[2017-10-08 19:02] VITALS: BP 122/60; PULSE 79; RESP 16; O2SAT 100
== END 2017-10-08 19:45 | disposition home or self-care (01) ==
LOC: NEPD 16:50
DX: O26.892 Other specified pregnancy related conditions, second trimester (principal); Z3A.14 14 weeks gestation of pregnancy
CPT/HCPCS: 96361; 96374; 99284; J2765; J7030

== ENCOUNTER 2017-10-29 17:03 | Emergency (ER) | payer MEDICAID ==
[~2017-10-29 17:03] MED LIST changes: -AMCIN.1%T TOPICAL
[2017-10-29 17:05] VITALS: BP 112/65; PULSE 104; RESP 18; TEMP 98.3; O2SAT 100
--- NOTE | 2017-10-29 20:30 | PD ---
HPI Chief Complaint: Cold / Flu Symptoms Time Seen by Provider: 20:29 Travel History International Travel<30 days: No Contact w/Intl Traveler<30days: No Traveled to known affect area: No History of Present Illness HPI 27-year-old female presents to the ED for evaluation of 2 day history of sinus congestion and runny nose. She states that she was coping well with these symptoms. However the last 24 hours she is beginning to have body aches and chills. Kids are sick with similar symptoms and both tested positive for the flu. Patient 17 weeks , denies abdominal pain, vaginal bleeding. She did not receive this years flu vaccine. PFSH Past Medical History Diminished Hearing: No Immunizations Current: No : 4 Para: 2 Miscarriage: 1 : 0 Ectopic : Yes (x1) Past Surgical History Gynecologic Surgery: Yes (TUBAL WITH RUPTURE, REMOVAL OF L TUBE) Other Surgery: Yes (REMOVAL OF LEFT FALLOPIAN TUBE) Social History Alcohol Use: No Tobacco Use: No Substance Use: No Allergies-Medications (Allergen,Severity, Reaction): Coded Allergies: amoxicillin (Unverified Allergy, Unknown, 10/29/17) Pt reports allergy during childhood, unknown severity or reaction Reported Meds & Prescriptions Reported Meds & Active Scripts Active Tamiflu (Oseltamivir Phosphate) 75 Mg Cap 75 Mg PO BID 5 Days Promethazine (Promethazine HCl) 12.5 Mg Tab 12.5 Mg PO Q6H PRN Reported Plus Iron 29-1 mg ( Vit-Iron Carbonyl) 29 Mg Iron-1 Mg Tab 1 Tab PO DAILY Review of Systems Except as stated in HPI: all other systems reviewed are Neg Physical Exam Narrative GENERAL: Well-nourished, well-developed ill-appearing Afro-[place] female in no acute distress. SKIN: Warm and dry. HEAD: Normocephalic. Atraumatic. EYES: No scleral icterus. No injection or drainage. PERRLA. EOMI. ENT: Pearly johnston tympanic membranes bilaterally. Nasal mucosa is moist. Oropharynx without erythema, edema or exudate. NECK: Supple, trachea midline. No JVD or lymphadenopathy. CARDIOVASCULAR: Regular rate and rhythm without murmurs, gallops, or rubs. RESPIRATORY: Breath sounds clear and equal bilaterally. No accessory muscle use. GASTROINTESTINAL: Abdomen soft, non-tender, nondistended. + Bowel sounds MUSCULOSKELETAL: No cyanosis, or edema. BACK: Nontender without obvious deformity. No CVA tenderness. Data Data Last Documented VS Vital Signs Date Time Temp Pulse Resp B/P (MAP) Pulse Ox O2 Delivery O2 Flow Rate FiO2 10/29/17 20:34 10/29/17 17:05 98.3 104 18 100 Orders Orders Influenzae A/B Antigen (10/29/17 17:31) Ed Discharge Order (10/29/17 20:32) MDM Medical Decision Making Medical Screen Exam Complete: Yes Emergency Medical Condition: Yes Differential Diagnosis Viral syndrome versus influenza versus allergic rhinitis versus pharyngitis versus strep pharyngitis versus other Narrative Course 27-year-old female presents to the ED for evaluation of 2 day history of sinus congestion and runny nose. However the last 24 hours she is beginning to have body aches and chills. Kids are sick with similar symptoms and both tested positive for the flu. Patient 17 weeks , denies abdominal pain, vaginal bleeding. She did not receive this years flu vaccine. Patient afebrile on presentation. Physical exam reveals an ill-appearing female in no acute distress. ENT exam is unremarkable. Chest CTA B. Abdomen soft and nontender. Rapid flu swab positive. Patient's prescribed Tamiflu 75 mg twice a day 5 days. She is provided a note for work. She was given strict instructions to return to the ED if her symptoms worsen. I stressed the importance of Tylenol for fevers as well as increased hydration. States that her boyfriend's home to help with her children. She indicated understanding of the instructions and is agreeable to care plan. She is stable and discharged home. Diagnosis Primary Impression: Influenza A Referrals: Primary Care Physician Patient Instructions: General Instructions, Influenza (ED) Departure Forms: Tests/Procedures, Work Release Enter return to work date: Nov 05, 2017 Additional Instructions: Rest, hydrate. Push fluids such as sports drinks, Pedialyte, popsicles, clear broth. Take Tamiflu as prescribed. Continue with symptomatic treatment with OTC medications. Tylenol every 4-6 hours as needed for continued fever and body aches. Increase handwashing frequently to avoid the spread of the virus to other family members and the community. Disinfect commonly touched surfaces such as light switches, microwaves, remote controls. Replace toothbrush at the end of this illness. Follow-up with the primary care provider this week. Return to the ED for any urgent or emergent medical condition. Med/Other Pt SpecificInfo: Prescription(s) given Scripts Oseltamivir (Tamiflu) 75 Mg Cap 75 MG PO BID for Mgmt Viral Infection for 5 Days, #10 CAP 0 Refills Prov: Gene Collins MD 10/29/17 Disposition: 01 DISCHARGE HOME Condition: Stable Mary Ellen Franks Oct 29, 2017 20:30
[2017-10-29] MEDS ORDERED: OSEL75 PO (20:32)
== END 2017-10-29 20:43 | disposition home or self-care (01) ==
LOC: NEPK 17:03
DX: O99.512 Diseases of the respiratory system complicating pregnancy, second trimester (principal); J10.1 Influenza due to other identified influenza virus with other respiratory manifestations; Z3A.17 17 weeks gestation of pregnancy
CPT/HCPCS: 87804; 99283

== ENCOUNTER 2017-11-04 22:07 | Emergency (ER) | payer MEDICAID ==
[~2017-11-04 22:07] MED LIST changes: +OSEL75 PO
--- NOTE | 2017-11-04 23:03 | PD ---
HPI Chief Complaint Decreased movement, influenza Date Seen: Nov 04, 2017 Time Seen: 22:59 Travel History International Travel<30 Days: No Contact w/Intl Traveler<30Days: No Known Affected Area: No History of Present Illness HPI 27-year-old 3 para 2 at 17 weeks gestation who was treated for influenza on the fifth and just completed her Tamiflu. She was concerned because she not felt the baby move today. She denies bleeding, cramping or loss of fluid. Her influenza symptoms are improved but not completely resolved. She continues to have sore throat. No respiratory difficulty. No fever. History Past Medical History Medical History: Denies Significant Hx Obstetric History Obstetric History 2 prior term vaginal deliveries Current under the care of [facility] Family History Family History: Negative Social History Alcohol Use: No Tobacco Use: No Substance Abuse: No Allergies-Medications (Allergen,Severity, Reaction): Coded Allergies: amoxicillin (Unverified Allergy, Unknown, 10/29/17) Pt reports allergy during childhood, unknown severity or reaction Home Meds Active Scripts Oseltamivir (Tamiflu) 75 Mg Cap, 75 MG PO BID for Mgmt Viral Infection for 5 Days, #10 CAP 0 Refills Prov:Gene Collins MD 10/29/17 Promethazine (Promethazine) 12.5 Mg Tab, 12.5 MG PO Q6H Y for NAUSEA OR VOMITING , #30 TAB 0 Refills Prov:Salvatore Leyva MD 08/22/17 Reported Medications Vit-Iron Carbonyl ( Plus Iron 29-1 mg) 29 Mg Iron-1 Mg Tab, 1 TAB PO DAILY for Nutritional Supplement, #30 TAB 0 Refills 08/04/17 Review of Systems Except as stated in HPI: all other systems reviewed are Neg Physical Exam Narrative GENERAL: Well-nourished, well-developed patient. SKIN: Warm and dry. HEAD: Normocephalic and atraumatic. EYES: No scleral icterus. No injection or drainage. ENT: No nasal drainage noted. Mucous membranes pink. Airway patent. NECK: Supple, trachea midline. No JVD. CARDIOVASCULAR: Regular rate and rhythm without murmurs, gallops, or rubs. RESPIRATORY: Breath sounds equal bilaterally. No accessory muscle use. FHT's: Category: [-] Baseline: [140-] Reactive: [-] Variability: [-] Decels: [-] EXTREMITIES: No cyanosis or edema. BACK: Nontender without obvious deformity. No CVA tenderness. NEUROLOGICAL: Awake and alert. Motor and sensory grossly within normal limits. Five out of 5 muscle strength in all muscle groups. Normal speech. MDM Medical Record Reviewed: Yes Narrative Course / MDM Assessment: 17 week multiparous female with resolving influenza, normal surveillance today Plan: Follow up for care on Sunday Diagnosis Diagnosis: Primary Impression: 17 weeks gestation of Additional Impressions: Influenza Decreased movement affecting management of in second trimester Disposition: 01 DISCHARGE HOME Condition: Good Kwame Edward MD Nov 04, 2017 23:03
== END 2017-11-04 23:23 | disposition home or self-care (01) ==
LOC: HOBED 22:07
DX: J11.1 Influenza due to unidentified influenza virus with other respiratory manifestations (principal); O99.512 Diseases of the respiratory system complicating pregnancy, second trimester; O36.8120 Decreased fetal movements, second trimester, not applicable or unspecified; Z3A.17 17 weeks gestation of pregnancy
CPT/HCPCS: 99283

== ENCOUNTER 2018-01-18 09:23 | Emergency (ER) | payer OTHER, MEDICAID ==
--- NOTE | 2018-01-18 10:13 | PD ---
HPI Travel History International Travel<30 Days: No Contact w/Intl Traveler<30Days: No (Mamta Bain MD R1) History of Present Illness HPI 28-year-old female at 28/4 weeks presents to the ED for pelvic and left -sided pain. She has been receiving her care at [facility]. She reports that she has been having left-sided pain, pelvic pain, back pain for the last 2 weeks. She describes it as aching and constant. She also experienced mild irregular contraction yesterday. She has used Tylenol without relief. She does not remember her last normal bowel movement. She reports that her bowel movement this morning resulted in "boy." She also endorses dysuria. She endorses good movement. She denies fevers, chest pain, shortness of breath, leakage of fluid, and vaginal bleeding. (Mamta Bain MD) History Past Medical History Medical History: Denies Significant Hx (Mamta Bain MD) Obstetric History Obstetric History 1 ectopic 1 miscarriage (Mamta Bain MD) Past Surgical History Narrative Surgical Left tubal removal due to ectopic (Mamta Bain MD) Family History Family History: Negative (Mamta Bain MD) Social History Alcohol Use: No Tobacco Use: No Substance Abuse: No (Mamta Bain MD) Allergies-Medications (Allergen,Severity, Reaction): Coded Allergies: amoxicillin (Unverified Allergy, Unknown, 10/29/17) Pt reports allergy during childhood, unknown severity or reaction Home Meds Active Scripts Oseltamivir (Tamiflu) 75 Mg Cap, 75 MG PO BID for Mgmt Viral Infection for 5 Days, #10 CAP 0 Refills Prov:Gene Collins MD 10/29/17 Promethazine (Promethazine) 12.5 Mg Tab, 12.5 MG PO Q6H Y for NAUSEA OR VOMITING , #30 TAB 0 Refills Prov:Salvatore Leyva MD 08/22/17 Reported Medications Vit-Iron Carbonyl ( Plus Iron 29-1 mg) 29 Mg Iron-1 Mg Tab, 1 TAB PO DAILY for Nutritional Supplement, #30 TAB 0 Refills 08/04/17 Review of Systems Except as stated in HPI: all other systems reviewed are Neg (Mamta Bain MD R1) Physical Exam Narrative GENERAL: Well-nourished, well-developed patient. SKIN: Warm and dry. HEAD: Normocephalic and atraumatic. EYES: No scleral icterus. No injection or drainage. ENT: No nasal drainage noted. Mucous membranes pink. Airway patent. NECK: Supple, trachea midline. No JVD. CARDIOVASCULAR: Regular rate and rhythm without murmurs, gallops, or rubs. RESPIRATORY: Breath sounds equal bilaterally. No accessory muscle use. ABDOMEN/GI: Abdomen soft, non-tender, bowel sounds present, no rebound, no guarding Uterine Contractions: - FHT's: Category: 1 Baseline: 130s Reactive: yes Variability: moderate Decels: none EXTREMITIES: No cyanosis or edema. BACK: Nontender without obvious deformity. No CVA tenderness. NEUROLOGICAL: Awake and alert. Motor and sensory grossly within normal limits. Five out of 5 muscle strength in all muscle groups. Normal speech. (Mamta Bain MD R1) Data Data Vital Signs Reviewed: Yes Orders Orders Vital Signs (Adult) .ON ADMISSION (01/18/18 09:55) ^ Labor Status (01/18/18 09:55) Heart (01/18/18 09:55) Urinalysis - C+S If Indicated (01/18/18 09:55) ^ Non Stress Test (01/18/18 09:55) ^ Hydration (01/18/18 09:55) (Mamta Bain MD R1) MDM Plan 28-year-old female at 28/4 weeks presents to the OB ED with abdominal pain. -intrauterine , category 1, reassuring -patient does not recall last normal BM, abdominal pain most likely related to constipation -UA negative -Advised patient to take magnesium citrate OTC -Hydrate regularly -Follow-up with OB provider for routine OB care (Mamta Bain MD R1) Attending Attestation Patient seen and evaluated with resident under direct supervision, agree with assessment and plan. (Kwame Edward MD) Diagnosis Diagnosis: Primary Impression: Constipation Disposition: 01 DISCHARGE HOME Condition: Stable Mamta Bain MD R1 Jan 18, 2018 10:13 Kwame Edward MD Jan 18, 2018 12:52
[2018-01-18 10:34] LABS: BILIRUBIN, URINE NEG (NEG); BLOOD, URINE NEG (NEG); GLUCOSE,URINE NEG (NEG); KETONE, URINE NEG (NEG); NITRITE,URINE NEG (NEG); SQUAMOUS EPITHELIAL CELL URINE 1 /hpf (0-5); URINE COLOR COLORLESS (YELLW/STRAW); URINE LEUKOCYTE ESTERASE NEG (NEG)
== END 2018-01-18 11:00 | disposition home or self-care (01) ==
LOC: HOBED 09:23
DX: O99.613 Diseases of the digestive system complicating pregnancy, third trimester (principal); K59.00 Constipation, unspecified; Z3A.28 28 weeks gestation of pregnancy
CPT/HCPCS: 81001; 99283

== ENCOUNTER 2018-02-27 11:22 | Emergency (ER) | payer OTHER, MEDICAID ==
--- NOTE | 2018-02-27 11:51 | PD ---
HPI Chief Complaint Dizziness, contractions Date Seen: Feb 27, 2018 Travel History International Travel<30 Days: No Contact w/Intl Traveler<30Days: No Known Affected Area: No History of Present Illness HPI Patient is a 28-year-old at 34/2 weeks gestation that presents to the [place] to ED with complaints of dizziness, contractions and feeling dehydrated. Patient states that for the last 2 months she has had irregular contractions that lasts 3-5 minutes or 5-10 minutes. The contractions feels like a tightness in her abdominal area. She also has been feeling pressure in her back and in her vaginal region for the last 2 months as well as shortness of breath. Lightheadedness/dizziness started this morning. She did not have a syncopal episode or fall. Patient denies headache, chest pain, fever, chills, nausea, or vomiting. She has been eating and drinking fluids regularly. She denies dysuria, abnormal vaginal discharge, vaginal bleeding, or loss of fluid. She has been feeling her baby move. History Past Medical History Medical History: Denies Significant Hx Obstetric History Obstetric History Two full-term vaginal deliveries in 2010 and 2013 1 ectopic 1 miscarriage Past Surgical History Narrative Surgical Surgery for ectopic and left fallopian tube removal Family History Narrative Family History Mom has hypertension Multiple family members have diabetes No family history of asthma Social History Narrative Social History Lives at home with 2 sons Works at [employer] Alcohol Use: No Tobacco Use: No Substance Abuse: No Allergies-Medications (Allergen,Severity, Reaction): Coded Allergies: amoxicillin (Unverified Allergy, Unknown, 10/29/17) Pt reports allergy during childhood, unknown severity or reaction Home Meds Active Scripts Hydroxyzine HCl (Hydroxyzine HCl) 25 Mg Tab, 25 MG PO HS, #4 TAB 0 Refills Take 1-2 tabs at bedtime Prov:Shabana Melgar MD R2 02/27/18 Oseltamivir (Tamiflu) 75 Mg Cap, 75 MG PO BID for Mgmt Viral Infection for 5 Days, #10 CAP 0 Refills Prov:Gene Collins MD 10/29/17 Promethazine (Promethazine) 12.5 Mg Tab, 12.5 MG PO Q6H Y for NAUSEA OR VOMITING , #30 TAB 0 Refills Prov:Salvatore Leyva MD 08/22/17 Reported Medications Vit-Iron Carbonyl ( Plus Iron 29-1 mg) 29 Mg Iron-1 Mg Tab, 1 TAB PO DAILY for Nutritional Supplement, #30 TAB 0 Refills 08/04/17 Review of Systems Except as stated in HPI: all other systems reviewed are Neg Physical Exam Narrative GENERAL: Well-nourished, well-developed patient. SKIN: Warm and dry. HEAD: Normocephalic and atraumatic. EYES: No scleral icterus. No injection or drainage. ENT: No nasal drainage noted. Mucous membranes pink. Airway patent. NECK: Supple, trachea midline. No JVD. CARDIOVASCULAR: Regular rate and rhythm without murmurs, gallops, or rubs. RESPIRATORY: Breath sounds equal bilaterally. No accessory muscle use. ABDOMEN/GI: Abdomen soft, non-tender, bowel sounds present, no rebound, no guarding Gravid to 34 weeks size GENITOURINARY: External Genitalia: intact and normal in appearance Cervix: posterior Dilatation: closed Effacement: 0% Station: -3 Presentation: cephalic Membranes: intact Uterine Contractions: Present on monitor, irregular FHT's: Category: I Baseline: 150 Reactive: Multiple accels Variability: Moderate Decels: None EXTREMITIES: No cyanosis or edema. BACK: Nontender without obvious deformity. No CVA tenderness. NEUROLOGICAL: Awake and alert. Motor and sensory grossly within normal limits. Five out of 5 muscle strength in all muscle groups. Normal speech. Data Data Vital Signs Reviewed: Yes Orders Orders Vital Signs (Adult) .ON ADMISSION (02/27/18 11:50) ^ Labor Status (02/27/18 11:50) Urinalysis - C+S If Indicated (02/27/18 11:50) ^ Non Stress Test (02/27/18 11:50) ^ Hydration (02/27/18 11:50) [facility] Medical Record Reviewed: Yes Interpretation(s) 28-year-old presents with dizziness and irregular contractions seen on monitor Plan -Urinalysis is negative -CBC shows H/H 07/23.7 -CMP wnl -Patient received a 1L bolus of D5 LR and Tylenol 650mg -Will discharge home with 4 tablets of Vistaril 25 mg PO HS Diagnosis Diagnosis: Primary Impression: [place] Mullen' contraction Additional Impression: Dizziness Disposition: DISCHARGE HOME Scripts Hydroxyzine HCl (Hydroxyzine HCl) 25 Mg Tab 25 MG PO HS, #4 TAB 0 Refills Take 1-2 tabs at bedtime Prov: Shabana Melgar MD R2 02/27/18 Shabana Melgar MD R2 Feb 27, 2018 11:51
[2018-02-27] MEDS ORDERED: DEXT 5%-NACL 0.45% 1000 ML INJ 1,000 ML IV SCH (11:58)
[2018-02-27] MEDS ORDERED: DEXTROSE 5%-LACTATED RING INJ 1,000 ML IV ONE (12:15)
[2018-02-27 12:17] LABS: BILIRUBIN, URINE NEG (NEG); BLOOD, URINE NEG (NEG); GLUCOSE,URINE NEG (NEG); KETONE, URINE NEG (NEG); NITRITE,URINE NEG (NEG); SQUAMOUS EPITHELIAL CELL URINE 2 /hpf (0-5); URINE COLOR LIGHT-YELLOW (YELLW/STRAW); URINE LEUKOCYTE ESTERASE NEG (NEG)
[2018-02-27 13:07] LABS: HEMATOCRIT 30.7 % (35.0-46.0); MEAN CELL VOLUME 84.9 FL (80.0-100.0); MEAN CORPUSCULAR HEMOGLOBIN 27.7 PG (27.0-34.0); MEAN CORPUSCULAR HGB CONC 32.6 % (32.0-36.0); MEAN PLATELET VOLUME 8.1 FL (7.0-11.0); PLATELET COUNT 152 TH/MM3 (150-450); RED BLOOD COUNT 3.62 MIL/MM3 (4.00-5.30); RED CELL DISTRIBUTION WIDTH 14.9 % (11.6-17.2); WHITE BLOOD COUNT 10.1 TH/MM3 (4.0-11.0)
[2018-02-27 13:25] LABS: ALBUMIN 2.8 GM/DL (3.4-5.0); AST (GOT) 24 U/L (15-37); BICARBONATE 21.7 MEQ/L (21.0-32.0); BLOOD UREA NITROGEN 3 MG/DL (7-18); CALCIUM 9.2 MG/DL (8.5-10.1); CHLORIDE 106 MEQ/L (98-107); CREATININE 0.46 MG/DL (0.50-1.00); GLOMERULAR FILTRATION RATE 196 ML/MIN (>89); GLUCOSE,RANDOM 78 MG/DL (74-106); SODIUM (NA) 138 MEQ/L (136-145)
[2018-02-27 13:26] LABS: ALT (GPT) 21 U/L (10-53)
[2018-02-27 13:28] LABS: ALKALINE PHOSPHATASE 132 U/L (45-117); TOTAL BILIRUBIN ADULT 0.3 MG/DL (0.2-1.0); TOTAL PROTEIN 7.1 GM/DL (6.4-8.2)
[2018-02-27] MEDS ORDERED: HYDR-3133 PO (13:44)
[2018-02-27] MEDS ORDERED: ACETAMINOPHEN 325 MG TAB PO ONE (13:45)
== END 2018-02-27 15:33 | disposition home or self-care (01) ==
LOC: HOBED 11:22
DX: O47.03 False labor before 37 completed weeks of gestation, third trimester (principal); Z3A.34 34 weeks gestation of pregnancy
CPT/HCPCS: 59025; 80053; 81001; 85027; 99284; J7121

== ENCOUNTER 2018-03-15 14:55 | Emergency (ER) | payer OTHER, MEDICAID ==
[2018-03-15] VITALS (17 sets, daily range): PULSE 83–99
[~2018-03-15 14:55] MED LIST changes: +HYDR-3133 PO
--- NOTE | 2018-03-15 15:51 | PD ---
HPI Chief Complaint Contractions Date Seen: Mar 15, 2018 Travel History International Travel<30 Days: No Contact w/Intl Traveler<30Days: No Known Affected Area: No History of Present Illness HPI Patient is a 28-year-old at 36/4 weeks gestation that presents to the [facility] ED with a chief complaint of contractions that began around 8 AM this morning. Patient states that she lost her mucous plug 2 days ago and also noticed some this morning. She woke up this morning with sharp right sided pain and states that she has been having contractions that, every 3-5 minutes. The contractions 4/10 in intensity. She has also been feeling pressure on her bladder. Patient denies headache, chest pain, fever, chills, nausea, or vomiting. She also denies dysuria, abnormal vaginal discharge, vaginal bleeding, or loss of fluid. She has been feeling her baby move but not so much this morning. Weeks Gestation: 36 Para: 2 : 5 Miscarriage: 1 History Past Medical History Medical History: Denies Significant Hx Obstetric History Obstetric History Two full-term vaginal deliveries in 2010 and 2013 1 ectopic 1 miscarriage Past Surgical History Narrative Surgical Surgery for ectopic and left fallopian tube removal Family History Narrative Family History Mom has hypertension Multiple family members have diabetes No family history of asthma Social History Narrative Social History Lives at home with 2 sons Works at [employer] Her boyfriend comes around to help with the kids Alcohol Use: No Tobacco Use: No Substance Abuse: No Allergies-Medications (Allergen,Severity, Reaction): Coded Allergies: amoxicillin (Unverified Allergy, Unknown, 10/29/17) Pt reports allergy during childhood, unknown severity or reaction Home Meds Active Scripts Hydroxyzine HCl (Hydroxyzine HCl) 25 Mg Tab, 25 MG PO HS, #4 TAB 0 Refills Take 1-2 tabs at bedtime Prov:Shabana Melgar MD R2 02/27/18 Oseltamivir (Tamiflu) 75 Mg Cap, 75 MG PO BID for Mgmt Viral Infection for 5 Days, #10 CAP 0 Refills Prov:Gene Collins MD 10/29/17 Promethazine (Promethazine) 12.5 Mg Tab, 12.5 MG PO Q6H Y for NAUSEA OR VOMITING , #30 TAB 0 Refills Prov:Salvatore Leyva MD 08/22/17 Reported Medications Vit-Iron Carbonyl ( Plus Iron 29-1 mg) 29 Mg Iron-1 Mg Tab, 1 TAB PO DAILY for Nutritional Supplement, #30 TAB 0 Refills 08/04/17 Review of Systems Except as stated in HPI: all other systems reviewed are Neg Physical Exam Vital Signs Date Time Temp Pulse Resp B/P (MAP) Pulse Ox O2 Delivery O2 Flow Rate FiO2 03/15/18 15:20 99 03/15/18 15:15 94 Narrative GENERAL: Well-nourished, well-developed patient. SKIN: Warm and dry. HEAD: Normocephalic and atraumatic. EYES: No scleral icterus. No injection or drainage. ENT: No nasal drainage noted. Mucous membranes pink. Airway patent. NECK: Supple, trachea midline. No JVD. CARDIOVASCULAR: Regular rate and rhythm without murmurs, gallops, or rubs. RESPIRATORY: Breath sounds equal bilaterally. No accessory muscle use. ABDOMEN/GI: Abdomen soft, non-tender, bowel sounds present, no rebound, no guarding Gravid to 36 weeks size GENITOURINARY: External Genitalia: intact and normal in appearance Cervix: posterior Dilatation: 1cm Effacement: 20% Station: -3 Presentation: cephalic Membranes: intact Uterine Contractions: Present on monitor every 3-5 minutes FHT's: Category: I Baseline: 145 Reactive: Multiple accels Variability: Moderate Decels: None EXTREMITIES: No cyanosis or edema. NEUROLOGICAL: Awake and alert. Motor and sensory grossly within normal limits. Five out of 5 muscle strength in all muscle groups. Normal speech. Data Data Vital Signs Reviewed: Yes Orders Orders Vital Signs (Adult) .ON ADMISSION (03/15/18 15:33) ^ Labor Status (03/15/18 15:33) ^ Non Stress Test (03/15/18 15:33) ^ Hydration (03/15/18 15:33) MDM Medical Record Reviewed: Yes Interpretation(s) 28-year-old presents with contractions seen on the monitor. Not in active labor. Plan 1. IUP -FHT category I - reassuring -Vaginal exam: 10/13%/-3 -Continue routine care 2. Irregular contractions -Oral and IV hydration (1L LR bolus) After oral and IV hydration, patient felt better and ready to go home. Contractions dissipated in intensity. Labor precautions given. Seen and discussed with Dr. Arshad Diagnosis Diagnosis: Primary Impression: Premature uterine contractions causing threatened premature labor in third trimester Disposition: 01 DISCHARGE HOME Condition: Stable Patient Instructions: Abdominal Pain in (ED), Early Labor Signs (ED) , Labor (ED) Shabana Melgar MD R2 Mar 15, 2018 15:51
[2018-03-15] MEDS ORDERED: LACTATED RINGER'S 1000 ML INJ 1,000 ML IV ONE (16:00)
== END 2018-03-15 17:02 | disposition home or self-care (01) ==
LOC: HOBED 14:55
DX: O47.03 False labor before 37 completed weeks of gestation, third trimester (principal); Z3A.36 36 weeks gestation of pregnancy
CPT/HCPCS: 59025; 99284; J7120

== ENCOUNTER 2018-03-29 14:38 | Inpatient (IN) ==
[2018-03-29] MEDS ORDERED: fentaNYL Citrate Inj 100 MCG/2 ML Ampul IV.PUSH PRN ×2 (15:16)
[2018-03-29] MEDS ORDERED: Oxytocin 30 Units/500ml Premix 30 UNITS/500 ML BAG IV.SIG ONE (15:16)
[2018-03-29] MEDS ORDERED: Sodium Chlor 0.9% Inj 500 ML IV.SIG ONE (15:16)
[2018-03-29] MEDS ORDERED: Naloxone Inj 0.4 MG/ML Vial IV.PUSH PRN (15:16)
[2018-03-29] MEDS ORDERED: Sod Chloride 0.9% Inj 1,000 ML IV.CONT SCH (15:30)
[2018-03-29] MEDS ORDERED: Citric Acid/Sodium Citrate Liq 30 ML UDC PO SCH (15:30)
--- NOTE | 2018-03-29 16:07 | P.HPOB ---
Addendum entered and electronically signed by Reji Patel III, MD, R1 16:44: Original Note: History of Present Illness Primary Care Physician: No Primary Care Physician Chief Complaint: contractions History of Present Illness: Ms Boyle is a 28YO at 38/4 weeks followed by CFW who presents after LOF with a small gush around 2PM today with ctx. Denies VB; however, states there is good movement. Pt was recently seen on 03/25 for pelvic pain and ctx. There has been no N/V/D, dizziness, fall, or other neurologic sxs. Denies dysuria, previous UTIs during . States she has been hydrating. Pt has two sons born at term via , one miscarriage and one ectopic requiring salpingectomy. Weeks Gestation:: 38 Para: 2 : 5 Total # of Miscarriage(s): 1 Total # of Abortions (Spontaneous & Elective): 0 - Inpatient Certification If this patient has been admitted as an Inpatient: I certify that the inpatient services were ordered in accordance with Medicare regulations governing the order. This includes certification that hospital inpatient services are reasonable and necessary and in the case of services not specified as inpatient-only under 42 CFR 419.22(n), that they are appropriately provided as inpatient services in accordance to with the 2-midnight benchmark under 43 CFR 412.3(e) Exam Vital signs: Vital Signs 03/26/18 13:47 03/26/18 13:52 Temperature 98.6 F Pulse Rate 108 H 101 H Respiratory Rate 18 Blood Pressure 135/71 130/64 Narrative: GENERAL: Well-nourished, well-developed patient. SKIN: Warm and dry. No rashes. HEAD: Normocephalic and atraumatic. EYES: No scleral icterus. No injection or drainage. ENT: No nasal drainage noted. Mucous membranes pink. Airway patent. NECK: Supple, trachea midline. No JVD. CARDIOVASCULAR: Regular rate and rhythm without murmurs, gallops, or rubs. RESPIRATORY: Breath sounds equal bilaterally. No accessory muscle use. ABDOMEN/GI: Abdomen soft, non-tender, bowel sounds present, no rebound, no guarding Gravid to 38 weeks size Fundal Height: 38 GENITOURINARY: External Genitalia: intact and normal in appearance Cervix: open Dilatation: 4 Effacement: 80 Station: -3 Presentation: vtx Membranes: SROM at 1400 this afternoon Uterine Contractions: 3-5 minutes FHT's: Category: 1 Baseline: 135 Reactive: yes Variability: moderate Decels: absent EXTREMITIES: No cyanosis or edema. BACK: Nontender without obvious deformity. No CVA tenderness. NEUROLOGICAL: Awake and alert. Motor and sensory grossly within normal limits. Five out of 5 muscle strength in all muscle groups. Normal speech. 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 Admit to L&D for anticipated vaginal delivery. Pt is GBS negative. Plan: 1. IUP with cervical change and SROM -Admit to L&D -Monitor and toco -Epidural PRN -LR at 125ml/hr -NPO Pt SDW Dr Edward Attestation Attestation: The exam, history, and the medical decision-making described in the above note were completed with the assistance of the resident physician. I reviewed and agree with the findings presented. I attest that I had a [id number] encounter with the patient on the same day, and personally performed and documented my assessment and findings in the medical record.
[2018-03-29 16:45] LABS: Baso % (Auto) 0.1 % (0.0-2.0); Eos % (Auto) 0.4 % (0.0-4.0); Hematocrit 34.4 % (35.0-46.0); Hemoglobin 10.9 gm/dL (11.6-15.3); Lymph # (Auto) 2.1 th/mm3 (1.0-4.8); Lymph % (Auto) 20.6 % (9.0-44.0); Mean Corpuscular HGB Conc 31.7 % (32.0-36.0); Mean Corpuscular Hemoglobin 26.4 pg (27.0-34.0); Mean Corpuscular Volume 83.2 fL (80.0-100.0); Mean Platelet Volume 8.5 fL (7.0-11.0); Mono % (Auto) 9.9 % (0.0-8.0); Neut # (Auto) 7.1 th/mm3 (1.8-7.7); Platelet Count 158 th/mm3 (150-450); Red Blood Count 4.13 mil/mm3 (4.00-5.30); Red Cell Distribution Width 16.1 % (11.6-17.2); White Blood Count 10.3 th/mm3 (4.0-11.0)
[2018-03-29 16:53] LABS: Amphetamine Urine With Conf Neg (Neg); Benzodiazepine Urine With Conf Neg (Neg)
[2018-03-29] MEDS ORDERED: Oxytocin 30 Units/500ml Premix 30 UNITS/500 ML BAG IV.SIG PRN (19:05)
[2018-03-30 01:07] LABS: Bacteria,Urine Rare /hpf; Bilirubin,Urine Negative (Negative); Clarity,Urine Hazy (Clear); Color,Urine Yellow (Yellw/Straw); Glucose,Urine (UA) Negative (Negative); Hyaline Casts,Urine 1 /lpf (0-3); Leukocyte Esterase,Urine Moderate (Negative); Mucus,Urine Few /lpf (Occasional); Nitrite,Urine Negative (Negative); Specific Gravity,Urine 1.005 (1.002-1.035); Squamous Epithelial Cell,Urine 1 /hpf (0-5)
[2018-03-30] MEDS ORDERED: fentaNYL 2MCG-Bupiv 0.125% Epi 150 ML EPIDURAL ONE ×2 (01:41→03:00)
[2018-03-30] MEDS ORDERED: fentaNYL Citrate Inj 100 MCG/2 ML Ampul EPIDURAL ONE (02:47)
[2018-03-30] MEDS ORDERED: Lidocaine PF 1% Inj 30 ML Vial ONE (04:23)
[2018-03-30] MEDS ORDERED: Naloxone Inj 0.4 MG/ML Vial IV.PUSH PRN (05:23)
[2018-03-30] MEDS ORDERED: Zolpidem Tartrate 5 MG Tablet PO PRN (05:23)
[2018-03-30] MEDS ORDERED: Benzocaine 20% Top Spray 60 ML Can TOPICAL PRN (05:23)
[2018-03-30] MEDS ORDERED: Witch Hazel 50%/Glyderin 12.5% 40 Pad Jar RECTAL PRN (05:23)
[2018-03-30] MEDS ORDERED: Acetaminophen 325 MG Tablet PO PRN (05:23)
[2018-03-30] MEDS ORDERED: Bisacodyl 10 MG Supp RECTAL PRN (05:23)
--- NOTE | 2018-03-30 05:28 | P.OBDELI ---
Patient Started Active Labor: Yes Active Labor Start Date: 03/30/18 Active Labor Start Time: 10:00 Medical Induction of Labor: No Artificial Rupture of Membrane: No Anesthesia: Epidural Episiotomy: none Vaginal Delivery: Normal Presentation: Occiput anterior Nuchal Cord: x2 Delayed Cord Clamping (45 sec): Yes Placenta: Spontaneous delivery, Intact, 3 vessel cord Laceration: None Estimated blood loss (mL): 300 : Male
[2018-03-30] MEDS ORDERED: Oxytocin 30 Units/500ml Premix 30 UNITS/500 ML BAG IV.CONT SCH (05:30)
[2018-03-30] MEDS ORDERED: Senna/Docusate Sodium 8.6/50 MG Tablet PO SCH (09:00)
--- NOTE | 2018-03-30 13:15 | P.PNOB ---
Subjective Post day: 0 Interval history: Ms. Boyle is a 28yo on PPO at 38/5. Of note she is Rh- and her was Rh+. Objective Vital Signs/I&O: Vital Signs 03/29/18 15:13 03/29/18 18:15 03/29/18 18:17 Temperature 99.4 F Pulse Rate 91 H 91 H Respiratory Rate 20 16 Blood Pressure 108/66 116/65 03/29/18 18:30 03/29/18 19:11 03/29/18 21:32 Temperature 98.1 F 98.5 F 98.7 F Pulse Rate 90 91 H Respiratory Rate 18 Blood Pressure 123/65 125/69 03/29/18 21:33 03/29/18 22:14 03/29/18 22:39 Temperature Pulse Rate 83 78 Respiratory Rate 18 18 16 Blood Pressure 122/74 124/72 03/29/18 22:56 03/29/18 23:00 03/29/18 23:30 Temperature 98.2 F Pulse Rate 79 75 Respiratory Rate Blood Pressure 107/55 L 109/60 03/29/18 23:45 03/30/18 00:00 03/30/18 01:00 Temperature 98.4 F Pulse Rate 84 78 Respiratory Rate 18 Blood Pressure 107/47 L 115/69 03/30/18 01:01 03/30/18 01:24 03/30/18 01:55 Temperature 98.2 F Pulse Rate 83 Respiratory Rate 18 Blood Pressure 03/30/18 02:14 03/30/18 02:19 03/30/18 02:22 Temperature Pulse Rate 84 94 H 91 H Respiratory Rate Blood Pressure 135/75 128/94 H 121/71 03/30/18 02:28 03/30/18 02:30 03/30/18 02:36 Temperature Pulse Rate 83 81 79 Respiratory Rate Blood Pressure 133/68 122/63 119/61 03/30/18 02:39 03/30/18 02:42 03/30/18 02:55 Temperature 98.4 F Pulse Rate 78 78 76 Respiratory Rate 18 Blood Pressure 121/60 122/63 109/64 03/30/18 03:25 03/30/18 03:30 03/30/18 03:35 Temperature Pulse Rate 74 75 78 Respiratory Rate Blood Pressure 115/67 03/30/18 03:40 03/30/18 04:10 03/30/18 04:15 Temperature Pulse Rate 73 80 71 Respiratory Rate Blood Pressure 113/57 L 114/62 03/30/18 04:35 03/30/18 04:45 03/30/18 04:46 Temperature Pulse Rate 75 79 72 Respiratory Rate Blood Pressure 132/83 113/67 03/30/18 04:50 03/30/18 04:55 03/30/18 05:15 Temperature Pulse Rate 81 88 78 Respiratory Rate 18 Blood Pressure 116/47 L 03/30/18 05:30 03/30/18 05:45 03/30/18 05:58 Temperature Pulse Rate 86 218 H 132 H Respiratory Rate 18 18 18 Blood Pressure 106/58 L 110/70 99/53 L 03/30/18 06:14 03/30/18 06:15 03/30/18 06:38 Temperature 98.0 F Pulse Rate 130 H 107 H 80 Respiratory Rate 18 18 Blood Pressure 115/70 118/57 L 124/57 L 03/30/18 07:01 03/30/18 08:15 03/30/18 08:42 Temperature Pulse Rate 81 88 87 Respiratory Rate 17 18 Blood Pressure 114/59 L 130/57 L 125/57 L 03/30/18 09:30 03/30/18 09:31 03/30/18 10:06 Temperature Pulse Rate 97 H 97 H 93 H Respiratory Rate 18 Blood Pressure 131/50 L 134/50 L 127/49 L 03/30/18 11:29 03/30/18 12:44 Temperature Pulse Rate Respiratory Rate 17 0 L Blood Pressure Result Diagrams: 03/29/18 16:20 Objective Remarks: GENERAL: Well-nourished, well-developed patient. CARDIOVASCULAR: Regular rate and rhythm without murmurs, gallops, or rubs. RESPIRATORY: Breath sounds equal bilaterally. No accessory muscle use. ABDOMEN/GI: Abdomen soft, non-tender. Fundus: Firm, non-tender at umbilicus. GENITOURINARY: Light to moderate bleeding. EXTREMITIES: No cyanosis or edema, non-tender, without signs of DVT. Medications and IVs: Active Medications Acetaminophen (Tylenol) 650 mg PO Q4H PRN PRN Reason: PAIN SCALE 1 TO 2 Al Hydroxide/Mg Hydroxide (Milk Of Magnesia Liq) 30 ml PO Q12H PRN PRN Reason: Mild Constipation Benzocaine (Americaine 20% [place]) 1 spray TOPICAL Q4H PRN PRN Reason: For Perineum Discomfort Bisacodyl (Dulcolax Supp) 10 mg RECTAL DAILY PRN PRN Reason: SEVERE CONSITIPATION Citric Acid/Sodium Citrate (Sodium Citrate/Citric Acid Liq) 30 ml PO [facility] Stop: 04/02/18 15:29 Diphtheria/Pertussis/Tetanus Vacc (Boostrix Vaccine Inj) 0.5 ml IM .ONCE ONE Stop: 03/30/18 16:01 Lactated Ringer's (Lr 1000 Ml Inj) 1,000 mls @ 125 mls/hr IV.CONT .Q8H [facility] Last Admin: 03/30/18 05:35 Dose: 125 mls/hr Sodium Chloride (Ns Inj) 1,000 mls @ 100 mls/hr IV.CONT .Q10H [facility] Oxytocin (Pitocin 30 Units/Ns 500 Ml Premix) 30 units in 500 mls @ 2 mls/hr IV.SIG TITRATE PRN; Protocol PRN Reason: For induction of labor Last Admin: 03/29/18 20:06 Dose: 2 milliunit/min, 2 mls/hr Lactulose (Lactulose Liq) 30 ml PO DAILY PRN PRN Reason: SEVERE CONSITIPATION Measles/Mumps/Rubella Vaccine Live (M-M-R Ii Vaccine Inj) 0.5 ml SQ .ONCE ONE Stop: 03/30/18 16:01 Miscellaneous Information (Misc Information) 1 each OTHER UNSCH PRN PRN Reason: SEE LABEL COMMENTS Stop: 03/31/18 02:47 Miscellaneous Information (Misc Information) 1 each OTHER UNSCH PRN PRN Reason: SEE LABEL COMMENTS Stop: 03/31/18 02:47 Naloxone HCl (Narcan Inj) 0.1 mg IV.PUSH Q2M PRN PRN Reason: for opiate reversal Naloxone HCl (Narcan Inj) 0.1 mg IV.PUSH Q2M PRN PRN Reason: for opiate reversal Ondansetron HCl (Zofran Odt) 4 mg PO Q6H PRN PRN Reason: NAUSEA OR VOMITING Ondansetron HCl (Zofran Odt) 4 mg PO Q6H PRN PRN Reason: NAUSEA OR VOMITING Oxycodone/Acetaminophen (Percocet 5/325 Mg) 1 tab PO Q4H PRN PRN Reason: PAIN SCALE 3 TO 5 Oxycodone/Acetaminophen (Percocet 5/325 Mg) 2 tab PO Q4H PRN PRN Reason: PAIN SCALE 6 TO 10 Senna/Docusate Sodium (Emelia-Colace) 1 tab PO BID ANKIT Sennosides (Senokot) 17.2 mg PO Q12H PRN PRN Reason: Moderate Constipation Sodium Chloride (Ns Flush) 2 ml IV.FLUSH BID ANKIT Sodium Chloride (Ns Flush) 2 ml IV.FLUSH PRN PRN PRN Reason: FLUSH AFTER USING IV ACCESS Witch Minnie/Glycerin (Tucks Pads) 1 applicatio RECTAL QID PRN PRN Reason: HEMORRHOIDS Zolpidem Tartrate (Ambien) 5 mg PO HS PRN PRN Reason: SLEEP
[2018-03-30] MEDS ORDERED: Diphtheria/Tetanus/Pertussis Vaccine Inj 0.5 ML Syringe IM ONE (16:00)
[2018-03-30] MEDS ORDERED: Measles/Mumps/Rubella Vaccine Inj 0.5 ML Vial SQ ONE (16:00)
[2018-03-30 21:01] VITALS: RESP 18
[2018-03-31 08:09] VITALS: BP 101/56; PULSE 80; TEMP 98
--- NOTE | 2018-03-31 09:12 | P.PNOB ---
Subjective Post day: 1 Interval history: Patient is a 28-year-old delivered at 38 weeks and 5 days. Patient is day 1 after spontaneous vaginal delivery. Patient's pain is well- controlled. Patient reports minimal bleeding. Patient reports eating and drinking without any nausea or vomiting. Patient has passed gas but has not had a bowel movement. Patient denies chest pain and shortness of breath. Patient has been ambulating; she denies lower extremity pain. Patient reports desire for tubal ligation, which she will discuss with her OB provider. Patient has decided to bottle-feed. Objective Vital Signs/I&O: Vital Signs 03/30/18 09:30 03/30/18 09:31 03/30/18 10:06 Temperature Pulse Rate 97 H 97 H 93 H Respiratory Rate 18 Blood Pressure 131/50 L 134/50 L 127/49 L 03/30/18 11:29 03/30/18 12:44 03/30/18 13:42 Temperature Pulse Rate Respiratory Rate 17 0 L 19 Blood Pressure 03/30/18 14:03 03/30/18 14:30 03/30/18 15:00 Temperature 98.5 F 98.1 F Pulse Rate 90 83 Respiratory Rate 18 20 Blood Pressure 127/56 L 113/65 03/30/18 20:00 03/31/18 08:00 Temperature 98.5 F 98.0 F Pulse Rate 70 80 Respiratory Rate 18 18 Blood Pressure 120/70 101/56 L Result Diagrams: 03/29/18 16:20 Objective Remarks: GENERAL: Well-nourished, well-developed patient. CARDIOVASCULAR: Regular rate and rhythm without murmurs, gallops, or rubs. RESPIRATORY: Breath sounds equal bilaterally. No accessory muscle use. ABDOMEN/GI: Abdomen soft, non-tender. Fundus: Firm, minimally tender at umbilicus. GENITOURINARY: Light to moderate bleeding. EXTREMITIES: No cyanosis or edema, non-tender, without signs of DVT. Medications and IVs: Active Medications Acetaminophen (Tylenol) 650 mg PO Q4H PRN PRN Reason: PAIN SCALE 1 TO 2 Al Hydroxide/Mg Hydroxide (Milk Of Magnesia Liq) 30 ml PO Q12H PRN PRN Reason: Mild Constipation Benzocaine (Americaine 20% Top [place]) 1 spray TOPICAL Q4H PRN PRN Reason: For Perineum Discomfort Bisacodyl (Dulcolax Supp) 10 mg RECTAL DAILY PRN PRN Reason: SEVERE CONSITIPATION Citric Acid/Sodium Citrate (Sodium Citrate/Citric Acid Liq) 30 ml PO SPECIAL CERTIFICATE DI[facility] Stop: 04/02/18 15:29 Lactated Ringer's (Lr 1000 Ml Inj) 1,000 mls @ 125 mls/hr IV.CONT .Q8H [facility] Last Admin: 03/30/18 05:35 Dose: 125 mls/hr Sodium Chloride (Ns Inj) 1,000 mls @ 100 mls/hr IV.CONT .Q10H [facility] Oxytocin (Pitocin 30 Units/Ns 500 Ml Premix) 30 units in 500 mls @ 2 mls/hr IV.SIG TITRATE PRN; Protocol PRN Reason: For induction of labor Last Admin: 03/29/18 20:06 Dose: 2 milliunit/min, 2 mls/hr Lactulose (Lactulose Liq) 30 ml PO DAILY PRN PRN Reason: SEVERE CONSITIPATION Naloxone HCl (Narcan Inj) 0.1 mg IV.PUSH Q2M PRN PRN Reason: for opiate reversal Naloxone HCl (Narcan Inj) 0.1 mg IV.PUSH Q2M PRN PRN Reason: for opiate reversal Ondansetron HCl (Zofran Odt) 4 mg PO Q6H PRN PRN Reason: NAUSEA OR VOMITING Ondansetron HCl (Zofran Odt) 4 mg PO Q6H PRN PRN Reason: NAUSEA OR VOMITING Oxycodone/Acetaminophen (Percocet 5/325 Mg) 1 tab PO Q4H PRN PRN Reason: PAIN SCALE 3 TO 5 Oxycodone/Acetaminophen (Percocet 5/325 Mg) 2 tab PO Q4H PRN PRN Reason: PAIN SCALE 6 TO 10 Senna/Docusate Sodium (Emelia-Colace) 1 tab PO BID [facility] Sennosides (Senokot) 17.2 mg PO Q12H PRN PRN Reason: Moderate Constipation Sodium Chloride (Ns Flush) 2 ml IV.FLUSH BID [facility] Sodium Chloride (Ns Flush) 2 ml IV.FLUSH PRN PRN PRN Reason: FLUSH AFTER USING IV ACCESS Witch Minnie/Glycerin (Tucks Pads) 1 applicatio RECTAL QID PRN PRN Reason: HEMORRHOIDS Zolpidem Tartrate (Ambien) 5 mg PO HS PRN PRN Reason: SLEEP Assessment and Plan - Diagnosis (1) Vaginal delivery Code(s): O80 - Encounter for full-term uncomplicated delivery Status: Acute - Plan Patient is a 28-year-old delivered at 38 weeks and 5 days. Patient is day 1 after spontaneous vaginal delivery. Continue routine care. Motrin and Percocet when necessary for pain. Encourage OOB. Pelvic rest for 6 weeks will need follow-up appointment at that time. Contraception: Tubal ligation; to be discussed with OB provider. Anticipate discharge tomorrow. payal OB hospitalist
--- NOTE | 2018-03-31 17:43 | P.DS ---
Date of admission: 03/29/18 15:39 Primary care physician: UNKNOWN Attending physician on discharge: Kwame Edward Anticipated date of discharge: 03/31/18 Brief History from admission: Admitted for labor, subsequent DS: Diagnosis - Discharge Diagnosis (1) Vaginal delivery Status: Acute DS: Summary Hospital Course: The pt was admitted and subsequently delivered vaginally. - Time Spent with Patient Total time spent providing and/or coordinating discharge services: Exam Vital signs: Vital Signs 03/30/18 20:00 03/31/18 08:00 Temperature 98.5 F 98.0 F Pulse Rate 70 80 Respiratory Rate 18 18 Blood Pressure 120/70 101/56 L - Constitutional no acute distress - Routine Cardiovascular Exam Present: RRR. Absent: gallop - Routine Abdominal Exam Present: soft. Absent: tenderness, distended - Routine Extremities Exam Absent: edema, tenderness Results Procedures completed during hospitalization: vaginal delivery Discharge Plan - Discharge Disposition Patient Disposition: 01 Discharge Home - Discharge Condition Condition: Stable - Discharge Order Discharge Orders: Discharge Order (Routine); Ordered 03/31/18 Ordered By: Kwame Edward - Physicians Team Primary Care Provider: UNKNOWN, Attending Provider: Kwame Edward
== END 2018-03-31 18:21 | disposition home or self-care (01) ==
LOC: HOBED 14:38 → H2E 15:39 → H1EA 03-30 14:13
PROVIDERS: ADMIT Obstetrics & Gynecology; ATTEND Obstetrics & Gynecology
DX: Z23 Encounter for immunization; O69.81X0 Labor and delivery complicated by cord around neck, without compression, not applicable or unspecified; Z83.3 Family history of diabetes mellitus; Z37.0 Single live birth; Z3A.38 38 weeks gestation of pregnancy